=== PATIENT | female | born 1950 | race Caucasian/White ===

== ENCOUNTER 2016-06-30 07:48 | Day surgery (SDC) | payer MEDICARE, OTHER ==
--- NOTE | ~2016-06-30 | EGD ---
EGD REPORT [facility] [address] [address] NAME: EN SUAZO : 46 STATUS : REG [facility] [place] PAT#: [id number] AGE: 65 ADM/REG DATE : 06/30/16 MR#: [id number] REPORT SERV DATE: 06/30/16 DICTATED BY: CHACE CHRISTY DATE: 06/30/16 REPORT STATUS : Draft [facility]IB[facility] BY: [facility] DATE: 06/30/16 Endoscopy Center Patient Name: En Suazo Date of : 1950 Attending MD: CHACE CHRISTY MD Procedure Date No Time: 06/30/2016 Procedure: Upper GI endoscopy Indications: Heme positive stool Medicines: as per anesthesia Complications: No immediate complications. Procedure: Pre-Anesthesia Assessment: - ASA Grade Assessment: I - A normal, healthy patient. After obtaining informed consent, the endoscope was passed under direct vision. Throughout the procedure, the patient's blood pressure, pulse, and oxygen saturations were monitored continuously. The GIF [id number] was introduced through the mouth, and advanced to the third part of duodenum. The upper GI endoscopy was accomplished without difficulty. The patient tolerated the procedure. Findings: The examined esophagus was normal. The entire examined stomach was normal. The cardia and gastric fundus were normal on retroflexion. The examined duodenum was normal. Impression: - Normal esophagus. - Normal stomach. - Normal examined duodenum. Recommendation: - Continue present medications. Procedure Code(s): --- Professional --- 31361, Esophagogastroduodenoscopy, flexible, transoral; diagnostic, including collection of specimen(s) by brushing or washing, when performed (separate procedure) Diagnosis Code(s): --- Professional --- R19.5, Other fecal abnormalities CPT copyright 2013 [employer]. All rights reserved. The codes documented in this report are preliminary and upon supervisor concrete stone finishing review may EGD REPORT [facility] [address] [id number] NAME: EN SUAZO : [birth year] STATUS : REG [facility] [place] PAT#: [id number] AGE: 65 ADM/REG DATE : 06/30/16 MR#: [id number] REPORT SERV DATE: 06/30/16 DICTATED BY: CHACE CHRISTY. DATE: 06/30/16 REPORT STATUS : Draft TRANSCRIBED BY: [employer] DATE: 06/30/16 be revised to meet current compliance requirements. CHACE CHRISTY MD 06/30/2016 9:33 AM This report has been signed electronically. Number of Addenda: 0 Note Initiated On: 06/30/2016 9:15 AM Scope Withdrawal Time 0 hours 0 minutes 0 seconds [address] [id number]
--- NOTE | ~2016-06-30 | EGD ---
EGD REPORT [facility] [address] [place] [address] NAME: EN SUAZO : 46 [place] [facility] [place] PAT#: [id number] AGE: 65 ADM/REG DATE : 06/30/16 MR#: [id number] REPORT SERV DATE: 06/30/16 DICTATED BY: CHACE CHRISTY DATE: 06/30/16 REPORT STATUS : Draft TRANSCRIBED BY: [facility] DATE: 06/30/16 Endoscopy Center Patient Name: En Suazo Date of : 1950 Attending MD: CHACE CHRISTY MD Procedure Date No Time: 06/30/2016 Procedure: Colonoscopy Indications: Heme positive stool, FH of Colonic Polyps - 1st degree relative Medicines: as per anesthesia Complications: No immediate complications. Procedure: Pre-Anesthesia Assessment: - ASA Grade Assessment: I - A normal, healthy patient. After I obtained informed consent, the scope was passed under direct vision. Throughout the procedure, the patient's blood pressure, pulse, and oxygen saturations were monitored continuously. The PCF [id number] was introduced through the anus and advanced to the cecum, identified by appendiceal orifice and ileocecal valve. The colonoscopy was performed without difficulty. The patient tolerated the procedure. The quality of the bowel preparation was adequate to identify polyps. Findings: The perianal and digital rectal examinations were normal. Internal hemorrhoids were found during endoscopy and were mild. Impression: - Internal hemorrhoids. Recommendation: - Repeat colonoscopy in 5 years for surveillance. Procedure Code(s): --- Professional --- 29047, Colonoscopy, flexible, proximal to splenic flexure; diagnostic, with or without collection of specimen(s) by brushing or washing, with or without colon decompression (separate procedure) Diagnosis Code(s): --- Professional --- K64.8, Other hemorrhoids R19.5, Other fecal abnormalities Z83.71, Family history of colonic polyps CPT copyright 2013 [employer]. All rights reserved. EGD REPORT [facility] [address] [facility] [place]. [address] NAME: EN SUAZO : 46 [place]US : [place] [facility] [place] PAT#: [id number] AGE: 65 ADM/REG DATE : 06/30/16 MR#: [id number] REPORT SERV DATE: 06/30/16 DICTATED BY: CHACE CHRISTY. DATE: 06/30/16 REPORT STATUS : Draft TRANSCRIBED BY: [employer] DATE: 06/30/16 The codes documented in this report are preliminary and upon calender runner review may be revised to meet current compliance requirements. CHACE CHRISTY MD 06/30/2016 9:51 AM This report has been signed electronically. Number of Addenda: 0 Note Initiated On: 06/30/2016 9:13 AM Scope Withdrawal Time 0 hours 7 minutes [address] [facility] [place] [address]
[~2016-06-30 07:48] MED LIST: CO Q-10200 MG PO; D 5000 PO; HAIR, SKIN, NAIL PO; MULTIPLE VIT PO
== END 2016-06-30 23:59 | disposition home or self-care (01) ==
LOC: DMU 07:48
PROVIDERS: Internal Medicine Gastroenterology
PROC: 0DJD8ZZ Inspection of Lower Intestinal Tract, Via Natural or Artificial Opening Endoscopic (ICD-10-PCS; principal; 2016-06-30 09:00)
PROC: 0DJ08ZZ Inspection of Upper Intestinal Tract, Via Natural or Artificial Opening Endoscopic (ICD-10-PCS; 2016-06-30 09:00)
DX: K64.8 Other hemorrhoids (principal); Z83.71 Family history of colonic polyps; Z88.1 Allergy status to other antibiotic agents; Z90.710 Acquired absence of both cervix and uterus; Z79.899 Other long term (current) drug therapy; Z98.890 Other specified postprocedural states